=== PATIENT | male | born 1945 | race Caucasian/White ===

== ENCOUNTER 2021-12-09 05:45 | Day surgery (SDC) | payer MEDICARE, OTHER ==
[~2021-12-09] VITALS: Ht 177.8 cm; Wt 93.0 kg
[~2021-12-09 05:45] MED LIST: ASPIRIN81 MG PO; ATORVASTATIN CA10 MG PO; COZAAR50 MG PO; ELIQUIS5 MG PO; FINASTERIDE5 MG PO; FLOMAX0.4 MG PO; GLUCOSAMINE &1 EACH PO; HYDROCHLOROTH12.5 MG PO; METFORMIN HCL500 MG PO; PANTOPRAZOLE SO20 MG PO; ZYRTEC10 M3 PO
--- NOTE | 2021-12-09 09:42 | NUR ---
PT TAKEN TO SURGERY, FAMILY REMAINING IN RM. NO ISSUES OR NEEDS, GAVE ENCOURAGMENT, WILL FOLLOW
--- NOTE | 2021-12-09 09:50 | NUR ---
Pt arrives to medsur floor from PACU after TURP procedure. CBI infusing WNL, urine light pink with no clots noted. IVF infusing WNL, L hand IV dressing changed, patent. CPOX in place, pt noted to sat 88-90% on RA, when taking deep breaths pt returns to 97%, he verbalizes understanding of mindful breathing. Pt reports no pain or nausea. VSS. A+O, [place] at times. at bedside.
--- NOTE | 2021-12-09 10:20 | NUR ---
12/09/21 1020 Jen Higgins 0908 PT ARRIVED IN PACU NON RESPONSIVE TO NOXIOUS STIMULI WITH OPA IN PLACE. CHIN LIFT HELD BY RN. 0912 PT REACTIVE. OPA REMOVED. ROBERTO TO CBI WITH PALE PINK URINE. 15 BLOOD SUGAR 195. ANESTHESIA AWARE. 30 RESTNG. NO C/O'S. 0950 TO ROOM 109. REPORT GIVEN TO RN. BED PLUGGED IN.
--- NOTE | 2021-12-09 10:50 | NUR ---
Spoke with pt and his . They live in [place]. Pt is active and denies issues getting around. He does not use any DME. They both drive and pt is a . They use [facility] in [place] as he can have his [facility] meds filled there. Pt will go home with a urinary catheter in place. He has a follow up appt to have catheter removed. Pt and deny any needs and plan on dc to home tomorrow when discharges them.
--- NOTE | 2021-12-09 10:55 | NUR ---
Post op vitals taken, stable. Pt again at 89% o2, this RN in to start O2, pt states he will take deep breaths, returns to 95%, CPOX still in place, continuing to monitor, at bedside
--- NOTE | 2021-12-09 12:14 | NUR ---
Pt medicated with 3units SS insulin. No needs at this time, on RA. Call light in reach.
--- NOTE | 2021-12-09 12:59 | NUR ---
PT IN RM FOLLOWING TURP SURGERY. PT SEEMS ALERT, ANSWERS QUESTIONS WELL, SAID HE HAS NO PAIN AT THE MOMENT. AT BS, GAVE BLESSING AND WILL FOLLOW
--- NOTE | 2021-12-09 13:10 | NUR ---
Last set of post op vitals complete and VSS. Pt resting in bed and states no pain. Kitchen called to deliver lunch tray to pt. Pt on room air, call light in reach.
--- NOTE | 2021-12-09 16:06 | NUR ---
Assessment complete, pt resting in bed. Education provided regarding stone care, bedrest, symptoms such as "pressure" after surgery, pt verbalizes understanding- continue to reinforce. CBI slowed- draining light pink/clear, no clots noted. Pt states no pain or needs. IVF infusing WNL.
[2021-12-09] MEDS ORDERED: ATORVASTATIN CA20 MG PO (17:02)
[2021-12-09] MEDS ORDERED: PANTOPRAZOLE SO40 MG PO ×2 (17:03→17:09)
--- NOTE | 2021-12-09 17:30 | NUR ---
Scheduled SS insulin provided. Pt resting in bed, CBI at low rate, draining light pink with no clots noted. Education regarding stone care provided again. Discharge prepared for am.
[2021-12-09] MEDS ORDERED: OXYCODONE HCL5 MG PO (17:31)
[2021-12-09] MEDS ORDERED: CEFDINIR300 MG PO (17:32)
--- NOTE | 2021-12-09 19:51 | NUR ---
REPORT RECEIVED FROM DAY SHIFT RN. PT LYING IN BED ALERT AND ORIENTED. NEW BAG NS INFUSING ON CBI. URINE LIGHT RED COLORED. NO CLOTS NOTED. PT DENIES PAIN. NO NEEDS AT THIS TIME. CALL LIGHT IN REACH. WHITE BOARD UPDATED.
--- NOTE | 2021-12-09 20:57 | NUR ---
EVENING ASSESSMENT COMPLETE. SCHEDULED MEDS ADMIN PER EMAR. PT DENIES PAIN OR NAUSEA. CBI INFUSING. URINE LIGHT RED. NO CLOTS NOTED. IVF INFUSING WNL. SCD'S IN PLACE. PT DENIES QUESTIONS OR CONCERNS. CALL LIGHT IN REACH.
--- NOTE | 2021-12-09 23:15 | NUR ---
PT RESTING WITH EYES CLOSED. AWAKENS EASILY. CBI INFUSING WNL. URINE LIGHT RED. NO CLOTS NOTED. PT DENIES PAIN. FRESH ICE WATER PROVIDED. NO FURTHER NEEDS.
--- NOTE | 2021-12-10 02:47 | NUR ---
VS AND I&O COMPLETE. SCD'S REMOVED PER PT REQUEST DUE TO LEGS "ACHING." URINE LIGHT PINK WITH NO CLOTS. CBI CLAMPED AT THIS TIME. PRN FOR PAIN ADMIN FOR C/O CHRONIC LOWER BACK PAIN. PT DENIES FURTHER NEEDS. CALL LIGHT IN REACH.
--- NOTE | 2021-12-10 04:08 | NUR ---
PT RESTING WITH EYES CLOSED. SpO2 92% ON RA. HR 60'S. URINE IN ROBERTO TUBING LIGHT PINK, NO CLOTS NOTED. CBI REMAINS CLAMPED.
--- NOTE | 2021-12-10 06:10 | NUR ---
VS AND I&O COMPLETE. PT DENIES PAIN OR NAUSEA. CBI REMAINS CLAMPED. NO CLOTS NOTED. NEW BAG IVF INFUSING WNL. PT DENIES FURTHER NEEDS. CALL LIGHT IN REACH.
--- NOTE | 2021-12-10 07:17 | NUR ---
Report received from Osiris GIBSON. Pt resting in bed with eyes closed, even and unlabored RR, on CPOX, IVF infusing WNL. No needs identified. Will cont plan of care.
--- NOTE | 2021-12-10 08:21 | NUR ---
Scheduled medications administered and assessment complete. IVF and IV ABX infusing WNL. Pt states no pain or discomfort. CBI clamped early in am, maintains light pink and translucent, no clots noted. Education regarding stone care complete and pt verbalizes understanding.
[2021-12-10] MEDS ORDERED: ELIQUIS5 MG PO (09:05)
[2021-12-10] MEDS ORDERED: FIBER0.52 GM PO (09:06)
--- NOTE | 2021-12-10 09:46 | NUR ---
Discharge teaching provided to patient and his who verbalize understanding, all questions answered. IV removed WNL. VSS. CBI clamped and port capped for DC. Education about home care provided and pt and his are agreeable. Pt attempts to have BM, no success at this time. Pt dressed and all belongings returned. Rx and rx instructions provided to pt. Pharmacy notified of DC.
[2021-12-10] MEDS ORDERED: CEFDINIR300 MG PO (09:48)
--- NOTE | 2021-12-10 19:43 | OR ---
[facility] [address] [place], [place] [address] Signed DATE OF OPERATION: 12/09/2021 SURGEON: Susanna Gonzalez MD PREOPERATIVE DIAGNOSES: 1. 1-2 mm papillary bladder lesion located on the posterior wall of the bladder. 2. 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 POSTOPERATIVE DIAGNOSES: 1. 1-2 mm papillary bladder lesion located on the posterior wall of the bladder. 2. 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 3. 1-2 mm papillary bladder lesion not visualized on today's cystoscopy. NAMES OF PROCEDURES: 1. Diagnostic cystoscopy. 2. Transurethral resection of the prostate. ANESTHESIA: General. ESTIMATED BLOOD LOSS: 25 mL. COMPLICATIONS: None. SPECIMENS: Prostate chips sent to pathology for evaluation. DRAINS: A 22-Marshallese three-way Wilson catheter, connected to continuous bladder irrigation. INDICATIONS FOR PROCEDURE: Mr. Medrano is a very pleasant 76-year-old gentleman, who presented to me a few months ago with complaints of intermittent gross hematuria. He had been experiencing gross hematuria associated with intermittent bouts of suprapubic pain. He underwent upper tract imaging, which revealed no overt abnormalities. Interestingly, his urine cytology came back atypical. The cytology was then sent for FISH testing, which was positive. On cystoscopy performed for the gross hematuria, a 1-2 mm papillary lesion was noted on the posterior bladder wall. Also, noted was moderate trilobar BPH with evidence of Electronically Signed By: SUSANNA GONZALEZ MD 12/10/211942 PATIENT NAME: BERTHA MEDRANO OPERATIVE REPORT DATE OF : 45 REPORT #: [id number] PHYSICIAN: SUSANNA GONZALEZ MD PCP: NIGEL ESTARDA MD REPORT IS CONFIDENTIAL AND NOT TO BE RELEASED WITHOUT AUTHORIZATION [address] [address] Signed active bladder outlet obstruction. That day, he was consented to undergo bladder biopsy along with transurethral resection of the prostate. He presents today to undergo the aforementioned procedures. OPERATIVE FINDINGS: 1. Digital rectal examination was performed which revealed a 60 g prostate that was soft, smooth and symmetric with no focal nodules. 2. Diagnostic cystoscopy performed this morning revealed no evidence of the tiny bladder papillary mass. I performed a thorough inspection of the entire posterior wall of the bladder as well as the dome and lateral wallace and I did not appreciate any evidence of mass or bladder wall abnormality today. Therefore, decision was made to not proceed with the bladder biopsy. 3. The patient's trilobar prostate was resected in the routine fashion. The median lobe was resected 1st followed by the left and then right lateral lobes of the prostate to the level of the verumontanum using a 24-Marshallese bipolar loop. The resection was performed without difficulty. 4. At the end of the procedure, a 22-Marshallese three-way Wilson catheter was inserted into the patient's bladder and connected to continuous bladder irrigation. DESCRIPTION OF PROCEDURE: After informed consent was obtained, the patient was taken back to the operating room. He was transferred from the [facility] to the operating room table, where general anesthesia was induced. He was placed in the dorsal lithotomy position and his genitalia were prepped and draped in a standard sterile fashion. Using a 30-degree lens on a 22.5-Marshallese introducer, rigid cystoscope was inserted through his urethra and into his bladder under direct visualization. Panendoscopic views of the bladder were then obtained. Prior to this, the patient's urethral meatus was dilated from 18-Marshallese to 30-Marshallese using Mauricio sounds without difficulty. Once inside the bladder, I was unable to see the papillary lesion. I therefore switched from a 30-degree lens to a 70 degree lens to get a more thorough look at the patient's bladder. Please see the above findings. Again, I did not see any evidence of abnormality in the entire bladder wall of the patient, so the decision was made to defer bladder biopsy today. I then decided to move onto the TURP portion of the procedure. I instilled 60 mL of K-Y lubricant into the patient's urethra. This was followed by placement of a 26-Marshallese sheath using the visual obturator. The visual obturator was removed and switched out for the resectoscope. The patient's prostate was resected in the usual fashion using a 24-Marshallese bipolar loop. The median lobe of the prostate was resected 1st. All the while, I had good visualization of the bilateral ureteral orifices and they were not anywhere near the bladder neck. I then turned my attention to the left lateral lobe of the prostate, followed by the right lateral lobe of the prostate. The prostate resection was performed down to the level of the verumontanum to avoid any iatrogenic Electronically Signed By: SUSANNA GONZALEZ MD 12/10/211942 PATIENT NAME: BERTHA MEDRANO OPERATIVE REPORT DATE OF : 45 REPORT #: [id number] PHYSICIAN: SUSANNA GONZALEZ MD PCP: NIGEL ESTRADA MD REPORT IS CONFIDENTIAL AND NOT TO BE RELEASED WITHOUT AUTHORIZATION [address] [address] Signed injury to the external sphincter. Once I was satisfied that all the prostatic tissue was resected, I switched to the bipolar button and finished off the resection and then used the bipolar button for hemostasis. Throughout the procedure, the patient's bladder was intermittently irrigated using a Zeus syringe to extract all of the prostate chips as per routine. Towards the end, I continued to achieve improved hemostasis using the bipolar button. Once all the prostate chips were removed from the bladder and the resection was complete, I removed the resectoscope. I placed a 0.035 Sensor wire through the sheath and into the patient's bladder. The 26-Marshallese sheath was then removed fully intact, leaving the wire behind. Over the wire, I passed a 22-Marshallese three-way Wilson catheter into the patient's bladder without difficulty. The wire was removed and the catheter balloon was filled with 30 mL of sterile water. The Wilson catheter was then manually irrigated to ensure adequate placement. The catheter was then connected to continuous bladder irrigation. A digital rectal examination was then performed. Please see above findings. The procedure was then terminated. The patient tolerated the procedure well without any complication. He will now be transferred to the postanesthesia care unit in stable condition. DISPOSITION: I discussed the details of today's procedure with the patient's and answered all of her questions. I notified her that I was unable to visualize the very small papillary tumor that I had previously seen on cystoscopy. She was also notified that I did not see any evidence of any other abnormality on the wall of bladder i.e. erythema or any other bladder lesions. I made the decision at this time to focus on the TURBT today. However, the patient will need to be scheduled to return to the clinic approximately 4 to 5 months from now to undergo repeat cystoscopy to follow up on this very small bladder lesion. Otherwise, he will stay the night on continuous bladder irrigation this evening and his diabetic diet will be restarted as tolerated. He will be likely discharged to home tomorrow morning with his Wilson catheter gravity drainage. He will be sent home with cefdinir 300 mg p.o. b.i.d. for a total of 7 days along with oxycodone 5 mg one tablet p.o. Q 8 hours p.r.n. pain, dispense #10. He will be seen in clinic in 3 days to undergo a voiding trial. Susanna Gonzalez MD AR/MODL /[id number] Electronically Signed By: SUSANNA GONZALEZ MD 12/10/211942 PATIENT NAME: BERTHA MEDRANO OPERATIVE REPORT DATE OF : 45 REPORT #: [id number] PHYSICIAN: SUSANNA GONZALEZ MD PCP: NIGEL ESTRADA MD REPORT IS CONFIDENTIAL AND NOT TO BE RELEASED WITHOUT AUTHORIZATION [facility] [address] [place] [id number] Signed Copies: ~ Electronically Signed By: SUSANNA GONZALEZ MD 12/10/211942 PATIENT NAME: BERTHA MEDRANO OPERATIVE REPORT DATE OF : 45 REPORT #: [id number] PHYSICIAN: SUSANNA GONZALEZ MD PCP: NIGEL ESTRADA MD REPORT IS CONFIDENTIAL AND NOT TO BE RELEASED WITHOUT AUTHORIZATION
--- NOTE | 2021-12-12 12:09 | PATH ---
[facility] [address] [place], [place] [address] Signed SPECIMEN(S): A PROSTATE CHIPS SPECIMEN SOURCE: A. PROSTATE ZAFAR CLINICAL HISTORY: Pre: BPH, LUTS. Transurethral resection of prostate, cystoscopy with bladder biopsy. FINAL PATHOLOGIC DIAGNOSIS: Prostate chips, transurethral resection: - Benign prostatic hyperplasia. NAL:cml:C2NR MICROSCOPIC EXAMINATION: Histologic sections of all submitted blocks are examined by light microscopy. These findings, together with the gross examination, support the pathologic diagnosis. Focally in one of the chips is a cauterized area of urothelium that demonstrates nuclear hyperchromasia and nuclear enlargement. Mitotic figures are not seen in the histomorphology is somewhat altered by the cautery artifact. Immunohistochemical stains (with appropriately staining controls) were performed to further evaluate this section. The intact urothelium in this focus is negative for CK20 and does overexpress p53. GROSS DESCRIPTION: The specimen, labeled "GAGAN, prostate chips," is received in formalin and consists of irregular shaped, pink-redding, rubbery tissue fragments that aggregate measure 8.0 x 4.7 x 1.2 cm. The specimen weight 13 g. Specimen is entirely submitted in cassettes (A1-A9). JS (under the direct supervision of a pathologist) The Gross Description was prepared using a voice recognition system. The report was reviewed for accuracy; however, sound-alike word errors, addition and/or deletions may occur. If there is any question about this report, please contact Client Services. ADDITIONAL NOTES: Immunohistochemical and/or in situ hybridization studies were performed on this case with the appropriate positive controls that react as expected. This test was developed and its performance PATIENT NAME: BERTHA MEDRANO PATHOLOGY DATE OF : 45 REPORT #: [id number] PHYSICIAN: JANEE PATHOLOGY PCP: NIGEL ESTRADA MD REPORT IS CONFIDENTIAL AND NOT TO BE RELEASED WITHOUT AUTHORIZATION [place] [address] Signed characteristics determined by [facility]. It has not been cleared or approved by the U.S. Food and Drug Administration. The FDA has determined that such clearance or approval is not necessary. This test is used for clinical purposes. It should not be regarded as investigational or for research. [facility] is certified under the Clinical Laboratory Improvement Amendments of 1988 (CLIA) as qualified to perform high complexity clinical laboratory testing. This assay has not been validated for specimens that have been decalcified. The technical component was performed by [facility], [address] [place] [address] (CLIA# [id number]). Professional interpretation was performed by [place] [address] (CLIA# [id number]). PERFORMING LABORATORY: The technical component was performed by [facility] [address] (CLIA# [id number]). Professional [facility], [address] [place] [address] (CLIA# [id number]). Diagnostician: Ying Triana MD Pathologist Electronically Signed 12/12/2021 Copies: ~ PATIENT NAME: MARCELABERTHAFRANKLIN PATHOLOGY DATE OF : 45 REPORT #: [id number] PHYSICIAN: JANEE PATHOLOGY PCP: NIGEL ESTRADA MD REPORT IS CONFIDENTIAL AND NOT TO BE RELEASED WITHOUT AUTHORIZATION
== END 2021-12-10 10:00 | disposition home or self-care (01) ==
LOC: DS 05:45 → MS 05:45 → DS 06:45
PROVIDERS: ATTEND Urology
PROC: 0TBB8ZZ Excision of Bladder, Via Natural or Artificial Opening Endoscopic (ICD-10-PCS; 2021-12-09)
PROC: 0VT08ZZ Resection of Prostate, Via Natural or Artificial Opening Endoscopic (ICD-10-PCS; principal; 2021-12-09 06:45)
DX: N40.1 Benign prostatic hyperplasia with lower urinary tract symptoms (principal); N32.89 Other specified disorders of bladder; N13.8 Other obstructive and reflux uropathy; E11.9 Type 2 diabetes mellitus without complications; I48.0 Paroxysmal atrial fibrillation; I10 Essential (primary) hypertension; E78.2 Mixed hyperlipidemia; K21.9 Gastro-esophageal reflux disease without esophagitis; N32.9 Bladder disorder, unspecified
CPT/HCPCS: C1769; J0330; J0690; J0696; J1100; J1815; J1885; J2250; J2370; J2405; J2704; J2765; J3010; J7030; J7121

== ENCOUNTER 2022-05-06 10:37 | Day surgery (SDC) | payer MEDICARE, OTHER ==
[~2022-05-06] VITALS: Ht 177.8 cm; Wt 92.7 kg
--- NOTE | ~2022-05-06 | OR ---
[facility] [address] [place], [place] [address] Draft DATE OF OPERATION: 05/06/2022 SURGEON: Evie Flores MD PREOPERATIVE DIAGNOSES: 1. Gastroesophageal reflux with persistent dysphagia. 2. Multiple medical problems including atrial fibrillation, chronic anticoagulation with Eliquis and demand pacemaker. POSTOPERATIVE DIAGNOSES: 1. No distinct esophageal stricture, but moderate-sized hiatal hernia. 2. Antral gastritis and mild duodenitis. 3. CLOtest negative at 15 minutes postprocedure. PROCEDURES: 1. Esophagogastroduodenoscopy with biopsy. 2. Chilean over the wire esophageal dilation, 51-Montenegrin, single pass. ANESTHESIA: Intravenous sedation; fentanyl 100 mcg and Versed 4 mg. INDICATIONS: This 77-year-old white man is a patient of Dr. Sanchez. He has been referred for upper endoscopy. He has had difficulties of swallowing for quite some time. He is prescribed Protonix for reflux "heartburn" type symptoms, which was helpful regarding his reflux symptoms, but not particularly impactful on his dysphagia. He has had no associated hematemesis and has no family history of esophageal cancer. He does have numerous medical problems include hypertension, dysfunctional sinus rhythm requiring pacemaker as well as chronic anticoagulation. He lives in [place], [place]. He is admitted at this time to undergo upper endoscopy and possible esophageal dilation. He and his understand the risks of bleeding, infection, perforation, and other unforeseen complications related to these procedures and wished to proceed. FINDINGS: Upper endoscopy showed no distinct stricture of the esophagus and no felinization of the esophagus to suggest the eosinophilic esophagitis. There was a hiatal hernia, which is [id number] in size. Stomach had mild gastritis as did the duodenum. There was no gastric outlet obstruction. CLOtest was negative. Dilation was undertaken to 51-Montenegrin single pass over the wire, Chilean dilator system. PATIENT NAME: BERTHA MEDRANO OPERATIVE REPORT DATE OF : 45 REPORT #: [id number] PHYSICIAN: EVIE FLORES MD PCP: NIGEL SANCHEZ MD REPORT IS CONFIDENTIAL AND NOT TO BE RELEASED WITHOUT AUTHORIZATION [facility] [address] [place], [place] [address] Draft DESCRIPTION OF PROCEDURE: The patient was brought to the endoscopy suite and placed in lateral decubitus position, undergoing lidocaine hypopharyngeal anesthesia. He was given intravenous sedation to the point of slurred speech and nystagmus with full cardiopulmonary monitoring. A bite block was placed. An Olympus video upper endoscope was passed in the hypopharynx. The vocal cords appeared normal. Scope was advanced to the esophagus without problem throughout its length, it looked reasonably normal, certainly no evidence of obvious stricture, no Wyman epithelium and no felinization of the esophagus. Scope was easily passed into the stomach, which was insufflated with air. Rugal folds were normal, though there did appear to be a somewhat diffuse gastritis. The antrum had similar findings with inflammation. The pylorus was normal, scope was passed through into the duodenum. The duodenum did have chronic inflammatory change, but no ulceration. Biopsies were obtained. Scope was withdrawn and biopsies then taken of the antrum and more proximal stomach for GERALDINE and pathologic testing. Retroflexed view was undertaken, showing a moderate-sized hiatal hernia. The scope was carefully withdrawn to the distal esophagus. There was no evidence of Wyman epithelium or stricture. Withdrawal of scope through the esophagus again showed no discrete stricture or stigmata of the eosinophilic esophagitis. The scope was advanced back into the stomach. Mindful of the logistical issues in his particular case), withdrawal of Eliquis, distance to travel, ongoing symptoms of dysphagia and so forth). It was deemed advisable for an empiric esophageal dilation under the circumstances. Chilean over the wire dilating system was employed. Flexible coil tipped the spring wire passed down the operating channel of the scope into the antrum of the stomach. The scope was carefully withdrawn stabilizing the wire. A single pass dilation was undertaken with Chilean over the wire 51-Montenegrin dilator well lubricated. This was passed without problem. The dilator and wire were removed in continuity. The scope was reintroduced. Examination undertaken, showing no sign of injury or mucosal tear in any way. The biopsy sites were intact as well. The scope was withdrawn and removed. The patient was taken to the recovery room in good condition. CONCLUDING DIAGNOSIS: Uncertain as to the origin of his dysphagia; no evidence of neoplasm or obvious stricture. Functional dysphagia may be possible. Biopsies are pending for eosinophilic esophagitis. PLAN: We would recommend continued use of Protonix. We will see him back in approximately eight weeks for followup and assess his progress at that time. PATIENT NAME: BERTHA MEDRANO OPERATIVE REPORT DATE OF : 45 REPORT #: [id number] PHYSICIAN: EVIE FLORES MD PCP: NIGEL SANCHEZ MD REPORT IS CONFIDENTIAL AND NOT TO BE RELEASED WITHOUT AUTHORIZATION [address] [address] Draft Evie Flores MD JM/MODL /[id number] Copies: ~ PATIENT NAME: BERTHA MEDRANO LOU OPERATIVE REPORT DATE OF : 45 REPORT #: [id number] PHYSICIAN: EVIE FLORES MD PCP: NIGEL SANCHEZ MD REPORT IS CONFIDENTIAL AND NOT TO BE RELEASED WITHOUT AUTHORIZATION
[~2022-05-06 10:37] MED LIST changes: +ATORVASTATIN CA20 MG PO; +CEFDINIR300 MG PO; +D3 + K2 DOTS 11 EACH PO; +FIBER0.52 GM PO; +METAMUCIL660 GM; +OXYCODONE HCL5 MG PO; +PANTOPRAZOLE SO40 MG PO; +PROTONIX20 MG PO; +VITAMIN B122500 MCG PO
--- NOTE | 2022-05-06 12:24 | NUR ---
05/06/22 Cristel4 Romina Potter 1216-PATIENT ARRIVED TO PACU ON 2L RR EVEN. PATIENT REACTIVE TO VERBAL STIMULI DENIES PAIN OR NAUSEA. ABDOMEN SOFT. PATIENTS HOB ELEVATED.IVF INFUISNG.
--- NOTE | 2022-05-08 13:45 | PATH ---
[facility] [address], [place] [address] Signed SPECIMEN(S): A DUODENAL BIOPSY SPECIMEN(S): B ANTRUM BIOPSY SPECIMEN(S): C DISTAL LOWER ESOPHAGUS BIOPSY SPECIMEN(S): D MIDDLE ESOPHAGEAL BIOPSY SPECIMEN SOURCE: A. DUODENAL BIOPSY B. ANTRUM BIOPSY C. DISTAL LOWER ESOPHAGUS BIOPSY D. MIDDLE ESOPHAGEAL BIOPSY CLINICAL HISTORY: Esophageal dysphagia; GERD with esophagitis; hiatal hernia; gastritis; duodenitis FINAL PATHOLOGIC DIAGNOSIS: A. Duodenal biopsy: - Benign duodenal mucosa, negative for specific diagnostic abnormality. B. Antrum biopsy: - Benign gastric fundic-type mucosa with focal slight chronic inflammation. - Negative for evidence of Helicobacter organism on routine HE stained sections. C. Distal lower esophageal biopsy: - Benign esophageal mucosa, negative for significantly increased epithelial eosinophils. - Negative for unequivocal gastric glandular mucosa. D. Middle esophageal biopsy: - Benign esophageal mucosa, negative for increased epithelial eosinophils. JVR:rodrigo:[id number] MICROSCOPIC EXAMINATION: Histologic sections of all submitted blocks are examined by light microscopy. These findings, together with the gross examination, support the pathologic diagnosis. GROSS DESCRIPTION: A. The specimen, labeled and designated "Clifford, duodenum biopsy," is received in formalin and consists of one redding soft tissue fragment, 0.4 cm. Entirely submitted in (A1). B. The specimen, labeled and designated "Medrano, antrum biopsy," is received in formalin and consists of one redding soft tissue fragment, 0.5 cm. Entirely PATIENT NAME: MEDRANOBERTHA PATHOLOGY DATE OF : 45 REPORT #: [id number] PHYSICIAN: JANEE ALDANA PCP: NIGEL ESTRADA MD REPORT IS CONFIDENTIAL AND NOT TO BE RELEASED WITHOUT AUTHORIZATION [facility] [address], [place] [address] Signed submitted in (B1). C. The specimen, labeled and designated "Medrano, distal lower esophagus biopsy," is received in formalin and consists of three redding soft tissue fragments, each measuring 0.1 to 0.2 cm. Entirely submitted in (C1). D. The specimen, labeled and designated "Medrano, middle esophagus biopsy," is received in formalin and consists of four redding soft tissue fragments, each measuring 0.2 to 0.3 cm. Entirely submitted in (D1). AC (under the direct supervision of a pathologist) The Gross Description was prepared using a voice recognition system. The report was reviewed for accuracy; however, sound-alike word errors, addition and/or deletions may occur. If there is any question about this report, please contact Client Services. PERFORMING LABORATORY: The technical component was performed by [facility], [address] [place] [id number] (CLIA# [id number]). Professional interpretation was performed by [facility] - [facility], [address] [place] [id number] (CLIA#: [id number]). Diagnostician: William Ruiz MD Pathologist Electronically Signed 05/08/2022 Copies: ~ PATIENT NAME: BERTHA MEDRANO PATHOLOGY DATE OF : 45 REPORT #: [id number] PHYSICIAN: JANEE PATHOLOGY PCP: NIGEL ESTRADA MD REPORT IS CONFIDENTIAL AND NOT TO BE RELEASED WITHOUT AUTHORIZATION
== END 2022-05-06 13:10 | disposition home or self-care (01) ==
LOC: DS 10:37 → OPS 10:37 → DS 10:41 → OPS 12:00 → DS 12:00 → OPS 13:10
PROVIDERS: ATTEND Surgery
PROC: 0DB68ZX Excision of Stomach, Via Natural or Artificial Opening Endoscopic, Diagnostic (ICD-10-PCS; 2022-05-06)
PROC: 0DB28ZX Excision of Middle Esophagus, Via Natural or Artificial Opening Endoscopic, Diagnostic (ICD-10-PCS; 2022-05-06)
PROC: 0DB38ZX Excision of Lower Esophagus, Via Natural or Artificial Opening Endoscopic, Diagnostic (ICD-10-PCS; 2022-05-06)
PROC: 0D758ZZ Dilation of Esophagus, Via Natural or Artificial Opening Endoscopic (ICD-10-PCS; 2022-05-06)
PROC: 0DB98ZX Excision of Duodenum, Via Natural or Artificial Opening Endoscopic, Diagnostic (ICD-10-PCS; principal; 2022-05-06 12:00)
DX: R13.10 Dysphagia, unspecified (principal); K21.9 Gastro-esophageal reflux disease without esophagitis; I48.91 Unspecified atrial fibrillation; Z79.01 Long term (current) use of anticoagulants; Z95.0 Presence of cardiac pacemaker; K29.70 Gastritis, unspecified, without bleeding; K29.80 Duodenitis without bleeding
CPT/HCPCS: 99153; G0500; J2250; J3010; J7121